=== PATIENT | male | born 1980 | race Caucasian/White ===

== ENCOUNTER 2016-09-26 08:00 | Emergency (ER) | payer BC, OTHER ==
--- NOTE | 2016-09-26 08:30 | UCPHY ---
H & P Patient Type: New Time Seen by Provider: 09/26/16 08:20 HPI/ROS: CHIEF COMPLAINT: Right lateral knee pain HISTORY OF PRESENT ILLNESS: The patient is a 36-year-old healthy man who comes to the Urgent Care complaining of pain in his lateral knee that he thinks his his iliotibial band. He states that he has been less active than usual lately but for some reason has pain in that area. It feels similar to previous episodes of IT band injury. He denies any trauma. No fevers or infections. No swelling. No laxity in his knee. No trouble walking. It hurts with palpation and massage. He classifies it is moderate. REVIEW OF SYSTEMS: Constitutional: denies: chills, fever, recent illness, recent injury EENTM: denies: blurred vision, double vision, nose congestion Respiratory: denies: cough, shortness of breath Cardiac: denies: chest pain, irregular heart rate, lightheadedness, palpitations Gastrointestinal/Abdominal: denies: abdominal pain, diarrhea, nausea, vomiting, blood streaked stools Genitourinary: denies: dysuria, frequency, hematuria, pain Musculoskeletal: See HPI Skin: denies: lesions, rash, jaundice, bruising Neurological: denies: headache, numbness, paresthesia, tingling, dizziness, weakness Hematologic/Lymphatic: denies: blood clots, easy bleeding, easy bruising Immunologic/allergic: denies: HIV/AIDS, transplant EXAM: GENERAL: Well-appearing, well-nourished and in no acute distress. HEAD: Atraumatic, normocephalic. EYES: Pupils equal round and reactive to light, extraocular movements intact, sclera anicteric, conjunctiva are normal. ENT: TMs normal, nares patent, oropharynx clear without exudates. Moist mucous membranes. NECK: Normal range of motion, supple without lymphadenopathy or JVD. LUNGS: Breath sounds clear to auscultation bilaterally and equal. No wheezes rales or rhonchi. HEART: Regular rate and rhythm without murmurs, rubs or gallops. ABDOMEN: Soft, nontender, normoactive bowel sounds. No guarding, no rebound. No masses appreciated. BACK: No CVA tenderness, no spinal tenderness, step-offs or deformities EXTREMITIES: Pain with palpation of massage over distal iliotibial band. Large muscular thighs. No bruising or swelling. Knees with no laxity or tenderness. No back pain. No weakness or numbness. No paresthesias. He strong pulses. NEUROLOGICAL: Cranial nerves II through XII grossly intact. Normal speech, normal gait. 5/5 strength, normal movement in all extremities, normal sensation PSYCH: Normal mood, normal affect. SKIN: Warm, dry, normal turgor, no visible rashes or lesions. Source: Patient Exam Limitations: No limitations - Medical/Surgical History Hx Asthma: No Hx Chronic Respiratory Disease: No Hx Diabetes: No Hx Cardiac Disease: No Hx Renal Disease: No Hx Cirrhosis: No Hx Alcoholism: No - Family History Significant Family History: No pertinent family hx - Social History Smoking Status: Never smoked Alcohol Use: Sober Drug Use: None Constitutional: Initial Vital Signs Temperature (C) 36 C 09/26/16 08:33 Heart Rate 66 09/26/16 08:33 Respiratory Rate 16 09/26/16 08:33 Blood Pressure 142/87 H 09/26/16 08:33 O2 Sat (%) 96 09/26/16 08:33 O2 Delivery Mode Room Air Allergies/Adverse Reactions: No Known Allergies Allergy (Unverified 09/26/16 08:33) Medical Decision Making ED Course/Re-evaluation: The patient's exam is consistent with iliotibial band syndrome. I encouraged rest and ibuprofen 3 times daily as well as a foam roller massage and gradual return to activity. The patient understands and agrees with this plan. He declines further workup or testing. Differential Diagnosis: Partial list of the Differential diagnosis considered include but were not limited to; knee laxity, fracture, patellar laxity, infection and although unlikely based on the history and physical exam, I also considered DVT, gout. I discussed these differential diagnoses and the plan with the patient as well as the usual and expected course. The patient understands that the diagnosis is provisional and that in medicine we are not always correct and that further workup is often warranted. Usual and customary warnings were given. All of the patient's questions were answered. The patient was instructed to return to the emergency department should the symptoms at all worsen or return, otherwise to followup with the physician as we discussed. Departure - Departure Disposition: Home, Routine, Self-Care Clinical Impression: Iliotibial band syndrome Qualifiers: Laterality: right Qualifier Code: (M76.31) Iliotibial band syndrome, right leg Condition: Fair Instructions: Iliotibial Band Syndrome (ED) Additional Instructions: use foam roller and consider physical therapy if not improving. Referrals: NONE *PRIMARY CARE P,. [Primary Care Provider] - As per Instructions - PQRS PQRS Measurement: Not applicable
[2016-09-26 08:35] VITALS: BP 142/87; PULSE 66; RESP 16; TEMP 96.8; O2SAT 96
== END 2016-09-26 08:44 | disposition home or self-care (01) ==
LOC: CED 08:00
DX: M25.561 Pain in right knee (principal)
CPT/HCPCS: 99203-PO; G0463-PO